=== PATIENT | female | born 1970 | race Caucasian/White ===

== ENCOUNTER 2025-04-25 20:56 | Inpatient (IN) | payer OTHER, SELFPAY ==
[2025-04-25 15:05] VITALS: BP 156/96
[2025-04-25 15:07] VITALS: BP 150/103
[2025-04-25 15:22] LABS: % Basophils 0.5 % (0-2); % Eosinophils 0.4 % (0-6); % Immature Granulocytes 0.4 % (0-0.5); % Lymphocytes 17.8 % (20.5-51.1); % Monocytes 6.7 % (1.7-9.3); % Neutrophils 74.2 % (42.2-75.2); Absolute Basophils 0.1 10^3/uL (0-0.2); Absolute Lymphocytes 1.7 10^3/uL (1.2-3.4); Absolute Monocytes 0.6 10^3/uL (0.1-0.6); Hematocrit 43.6 % (37.0-47.0); Hemoglobin 15.3 g/dL (12.0-16.0); Mean Corp Hgb Conc. 35.1 g/dL (33.0-37.0); Mean Corpuscular Hgb 30.4 pg (27.0-31.0); Mean Corpuscular Volume 86.5 fL (81.0-99.0); Mean Platelet Volume 9.1 fL (7.4-10.4); Nucleated Red Blood Cells % 0 %; Platelet Count 228 10^3/uL (130-400); Red Blood Cell Count 5.04 10^6/uL (4.20-5.40); Red Cell Dist. Width 12.8 % (11.5-14.5); White Blood Cell Count 9.4 10^3/uL (4.8-10.8)
[2025-04-25 15:40] LABS: INR 0.97; PT 13.2 Sec (11.4-14.6)
[2025-04-25 15:51] LABS: ALT (SGPT) 20 U/L (0-35); AST (SGOT) 29 U/L (14-36); Albumin 4.7 g/dl (3.5-5.0); Alkaline Phosphatase 76 U/L (38-126); Blood Urea Nitrogen 15 mg/dl (7-17); Calcium 9.5 mg/dl (8.4-10.2); Carbon Dioxide 25 mmol/L (22-30); Chloride 108 mmol/L (98-107); Glucose 105 mg/dl (70-99); Potassium 4.3 mmol/L (3.5-5.1); Sodium 141 mmol/L (135-145); Total Bilirubin 0.4 mg/dl (0.2-1.3); Total Protein 7.7 g/dl (6.3-8.2); eGFR > 60.00
[2025-04-25 15:59] LABS: Troponin I < 0.012 ng/ml
[2025-04-25] MEDS: SOLU-MEDROL PF 125 MG IV (17:56)
[2025-04-25] MEDS: DILAUDID 0.5 MG IV (19:18)
[2025-04-25] MEDS: ZOFRAN 4 MG IV (19:18)
--- NOTE | 2025-04-25 19:33 | ED.GENMED ---
History of Present Illness
General
Chief Complaint: Chest Pain
Time Seen by Provider: 04/25/25 17:18
History of Present Illness
History of Present Illness:
I reviewed records�the patient was seen here in the emergency department for chest pain in 2016 twice, 2017, and 2018.
CHIEF COMPLAINT(S)
Severe pain in the left shoulder and chest pain.
HISTORY OF PRESENT ILLNESS
The patient is a 54-year-old female who presents with a chief complaint of severe pain in the left shoulder and chest pain. The symptoms have been present for approximately one and a half weeks. The pain, originating in the left shoulder blade,
intensifies with movement and has been described by the patient as severe enough to prevent lying down or sitting comfortably. The patient expressed experiencing numbness and tingling extending down the left arm, describing it as a 'pain numbness'
that also tingles the fingers. The pain has been reported to go through the shoulder to the chest, causing significant distress and difficulty breathing. The patient reports a previous diagnosis involving her L3 and L4 vertebrae, which have caused
past episodes of extreme pain. The patient also expressed concern about a potential heart attack when the pain moved to her chest. Upon further questioning, the patient attributes her pain to nerve involvement, speculating a pinched nerve.
The physical examination revealed decreased sensation in the left forearm. The patient is unable to move the arm without exacerbation of pain, and certain movements provide temporary relief. She describes the pain as sharp and breath-taking. The
patient has avoided narcotics historically due to family issues with addiction.
PAST MEDICAL HISTORY
History of back issues involving L3 and L4 vertebrae with significant past episodes of pain.
ALLERGIES
Allergic reactions to multiple medications; severe rash in response to Tylenol.
REVIEW OF SYSTEMS
- Musculoskeletal: Severe pain in the left shoulder blade, intensifies with movement; numbness and tingling in the left arm; pain described as sharp and breath-taking.
- Neurological: Decreased sensation in the left forearm; numbness and tingling in the left arm and fingers.
- Respiratory: Pain causes significant difficulty in breathing.
PHYSICAL EXAM
- Musculoskeletal: Severe pain noted in left shoulder blade. Left paraspinal thoracic tenderness noted upon palpation.
- Neurological: Decreased sensation in left forearm.
- Respiratory: Lungs clear to auscultation. Pain non-reproducible upon chest wall palpation.
- Nursing notes reviewed and vital signs reviewed.
PROBLEM LIST
Acute:
- Severe left shoulder blade pain with radiation to the chest.
- Decreased sensation and tingling in the left arm.
PLAN
- Obtain a computed tomography scan of the chest to rule out serious conditions such as aortic dissection.
- Administer intravenous steroids to reduce inflammation.
- Avoid non-steroidal anti-inflammatory drugs and consider alternative medications due to allergy history.
- Monitor for any adverse effects or changes in patient status.
DIFFERENTIAL DIAGNOSIS
The Differential Diagnosis includes, in no particular order and is not limited to:
- Cervical radiculopathy
- Thoracic outlet syndrome
- Myocardial infarction
- Aortic dissection
- Tendinitis
- Brachial plexus injury
- Cervical spine issues
- Intercostal neuralgia
- Angina pectoris
- Anxiety-related chest pain
CARE-UPDATE
04/25/25 - 19:14
The patient is considering the use of a narcotic for pain management. After discussing with the patient and her boyfriend, a low dose of half a milligram of Dilaudid was suggested for pain relief. The patient expressed concerns about feeling
sedated, recalling a previous experience of falling asleep during a conversation after receiving pain medication. It was assured that the proposed dose is low and should not have a sedative effect. The decision was made to proceed with administering
half a milligram of Dilaudid.
CARE-UPDATE
04/25/25 - 19:[address] imaging - I see no evidence of thoracic aortic dissection however R basilar segmental PE suspected.
She was given Dilaudid earlier but pain persists although improved. Given the acute PE with ongoing pain will recommend admission to the hospital for heparin and pain control. I discussed case with Dr. Adebamiro.
EKG: Sinus 88, nonspecific ST abnormality
Past History
Past History
ED Past Medical History: None
ED Past Surgical History: Gynecological (Ectopic , salpingectomy)
Social History
Tobacco: Smoker
Alcohol: Occasional
Drug: None
Living: with family
Employment: Employed
Phy Exam
Physical Exam
Physical Exam:
See HPI
Scores
Heart Score for Chest Pain Patients
STEMI patient?: Not applicable
Course
Orders/Labs/Results
Orders:
Orders
04/25/25 15:00
EKG [Electrocardiogram (*1)] Urgent
Reason for Study: Chest Pain
EKG- Treatment ONCE
04/25/25 15:08
CR Chest - 2 Views Urgent
Comment:
Reason For Exam: chest pain
04/25/25 15:13
Complete Blood Count/With Diff Urgent
Comprehensive Metabolic Panel Urgent
Prothrombin Time Urgent
Troponin I Urgent
04/25/25 17:41
CT Chest Angio W/wo Iv Contras Urgent
Comment:
Reason For Exam: cp to back severe eval for dissection
MethylPREDNISolone PF [Solu-Medrol Pf] 125 mg IV NOW STA
04/25/25 19:14
HYDROmorphone [Dilaudid] 0.5 mg IV NOW STA
Ondansetron Injectable [Zofran] 4 mg IV NOW STA
04/25/25 19:50
Heparin 4,700 units IV NOW STA
Pharmacy Request to Place See Dose Instructions PO NOW STA
Discontinue all Active Warfarin orders?: Yes
04/25/25 19:51
PTT Urgent
Comment: Obtain baseline before beginning heparin infusion if not already collected
Nursing to Place Non Medication Order As Directed
Physician Order: PTT 6 hours after initial start of Heparin infusion
04/25/25 20:00
Heparin 93179 Units/250 ml 25,000 units in 250 ml IV PER PROTOCOL
Weight to be used for heparin protocol in kilograms (kg):: 58.2
Protocol:: DVT/PE
PTT Goal Range to be used:: PTT 73 to 111 seconds
Order type:: Initial
INITIAL Infusion Dose (UNITS/KG/hr) & then follow protocol:: 18 units/kg/hr
Infusion Dose in UNITS/hr & then follow protocol (UNITS/hr):: 1,000
INFUSION RATE in mL/hr & then follow protocol (mL/hr):: 10
For DVT/PE algorithm, re-bolus for low PTT?: Yes
PTT less than or equal to 64 seconds:: Re-bolus 80 units/kg (max 10,000units). Increase by 200 units/hr
(+ 2mL/hr)
PTT 64.1 to 72.9 seconds:: Re-bolus 40 units/kg (max 5,000 units). Increase by 100 units/hr
(+ 1mL/hr)
PTT 73 to 111 seconds:: Target Range. No change in rate.
PTT 111.1 to 130.9 seconds:: Decrease rate by 100 units/hr (- 1 mL/hr)
PTT 131 to 199.9 seconds:: HOLD for 1 hr. Then decrease by 200 units/hr (- 2mL/hr)
PTT greater than or equal to 200 seconds:: HOLD for 2 hrs & Notify Provider. Then decrease by 200 units/hr
(- 2mL/hr)
Lab follow-up:: Each change, PTT q6h until 2 consecutive are therapeutic. Then
PTT daily.
Pharmacy Request to Place See Dose Instructions IV DIRECTED
Abnormal Lab Results
04/25/25
15:13
Absolute Neuts (auto) 7.0 H 10^3/uL
(1.4-6.5)
Lymphocytes % 17.8 L %
(20.5-51.1)
Chloride 108 H mmol/L
(98-107)
Glucose 105 H mg/dl
(70-99)
04/25/25 15:13
04/25/25 15:13
Vital Signs
Initial and Last Documented VS:
Initial Vital Signs
Temp Pulse Resp BP Pulse Ox
37.1 C 82 17 156/96 100
04/25/25 15:05 04/25/25 15:05 04/25/25 15:05 04/25/25 15:05 04/25/25 15:05
Last Documented Vital Signs
Temp Pulse Resp BP Pulse Ox
37.1 C 82 17 150/103 100
04/25/25 15:05 04/25/25 15:05 04/25/25 15:05 04/25/25 15:07 04/25/25 15:05
*Critical Care Note
Total Time (30-74mins, 75-104mins- exclusive of procedures): Not Applicable
ED Attending Note
-
Portions of this chart may have been created with voice recognition software.� Occasional wrong word or��sound alike� substitutions may have occurred due to the inherent limitations of voice recognition software.
Discharge Plan
Departure
Prescriptions:
No Action
No Current Medications
0
Referrals:
Sharon Barrett DO [Family Provider, Family Practice]
Interventions
Interventions:
*Risk Screen - Suicide Last Done: 04/25/25 15:07
*General Assessment Last Done: 04/25/25 15:07
*Neglect/Abuse Screening Last Done: 04/25/25 15:07
*ED COVID-19 Vaccine History Last Done: 04/25/25 15:07
ED- Cardiac Assessment Last Done: 04/25/25 18:22
Discharge Date and Time
Print Language: NICARAGUAN
[2025-04-25 19:48] VITALS: BMI 21.4
[2025-04-25 20:16] LABS: APTT 27.4 Sec (23.4-35.0)
[2025-04-25 20:19] VITALS: BP 144/97
[2025-04-25] MEDS: HEPARIN 4700 UNITS IV (20:20)
[2025-04-25] MEDS: HEPARIN 25000 UNITS/250 ML IV (20:21)
--- NOTE | 2025-04-25 20:26 | HPS.HSE ---
Family Physician
-
Family Physician: Sharon Barrett
Chief Complaint
-
Chest pain
History of Present Illness
This is a 54-year-old female with past medical history significant for tobacco abuse and prior ectopic pregnancies presenting to the emergency department with acute episode of sharp chest pain in the setting of approximately 1 week of back pain.
Patient reports that about 1 week ago she was doing a walk on a deck lifting heavy objects and developed severe back pain and left upper back. She does not she may have some pinkness as well she is having some [id number] sensation in her
arms. This was tolerable for several days. However today whenever she sat up or stood up she had severe sharp chest pain that was radiating to the back. She denied feeling dizzy or lightheaded. She denied any palpitation. She denied nausea
vomiting or diaphoresis. She has no prior history of CAD. She does have positive family history.
Patient denies any recent travels. She denies any sick contacts. No history of recent flulike symptoms. She denies any calf tenderness or swelling.
In the emergency department she was afebrile. Blood pressure was 150/100 with a pulse of 87 and she was satting 100% on room air. ECG showed sinus rhythm at a rate of [address] or T wave changes. Chest x-ray was clear. Troponin was
negative. She had a CT with angio which showed small pulmonary embolus in the lateral right basilar lower lobe segmental pulmonary artery. No CT evidence for right heart strain. At the read was stated suspicious for this embolus rather than
definitive.
Medical History
Past Medical History
Past Medical History: Reports Other
Additional Past Medical History:
Ectopic
Migraine
Past Surgical History: Reports Orthopedic (Bilateral ACL knee surgeries) and Other (Bilateral salpingectomy, removal of uterus adhesions.)
Additional Past Surgical History:
Left breast biopsy
Thyroid biopsy
Social History
Tobacco: Smoker
Alcohol: None
Drug: None
Personal:
Living: With Family
Employment: Employed
Family History
Family History: Not pertinent
Allergies / Home Medications
Allergies reflects when Allergies were last updated in [employer].
Home Medications with original date entered in [employer]
Allergy/Medication List:
Allergies
Allergy/AdvReac Type Severity Reaction Status Date / Time
antihistamines Allergy Rash Uncoded 04/25/25 15:05
POISON BEN Allergy SPREADS Uncoded 04/25/25 15:05
ALL OVER
MY BODY
Home Medications
No Meds [No Current Medications] 02/17/18
Review of Systems
-
History Source: Patient
Constitutional: Reports No Symptoms
EENT: Reports No Symptoms
Respiratory: Reports No Symptoms
Cardiac: Reports Chest Pain
Abdomen/GI: Reports No Symptoms
: Reports No Symptoms
Musculoskeletal: Reports No Symptoms
Skin: Reports No Symptoms
Neurological: Reports No Symptoms
Endocrine: Reports No Symptoms
Hematologic/Lymphatic: Reports No Symptoms
Psych: Reports No Symptoms
Physical Exam
Vital Signs
Vital Signs
Temp Pulse Resp BP Pulse Ox
98.8 F 82 17 150/103 100
04/25/25 15:05 04/25/25 15:05 04/25/25 15:05 04/25/25 15:07 04/25/25 15:05
Physical Exam
General: Well Developed, Well Nourished and No Apparent Distress
HEENT: NormoCephalic, Moist mucous membranes and Atraumatic
Respiratory: Clear
Cardiac: S1/S2 and Regular Rhythm; No Murmur or Rub
GI: Soft, Non Tender, Non Distended and Normal Bowel Sounds; No Organomegaly
Rectal: Deferred by Provider
Musculoskeletal: No Clubbing, No Cyanosis and No Edema
Skin: No Rash
Neuro: Nonfocal/grossly intact
Laboratory Results
-
04/25/25 15:13
04/25/25 15:13
Laboratory Results
PT 13.2 Sec (11.4-14.6) 04/25/25 15:13
INR 0.97 04/25/25 15:13
Total Bilirubin 0.4 mg/dl (0.2-1.3) 04/25/25 15:13
AST 29 U/L (14-36) 04/25/25 15:13
ALT 20 U/L (0-35) 04/25/25 15:13
Alkaline Phosphatase 76 U/L (38-126) 04/25/25 15:13
Troponin I < 0.012 ng/ml 04/25/25 15:13
Data Reviewed
-
Diagnostic Radiology: Image Personally Visualized and interpreted and Report Reviewed by me
CT Scan: Report Reviewed by me
Medical Tests (Nuc Med, Echo, EKG etc): Image Personally Visualized and interpreted
Lab Data: Labs Reviewed by me
Old Records: Reviewed
Impression/Plan
-
IMPRESSION:
54-year-old female with no significant past medical history presents to the emergency department with chest pain and found to have small right distal PE (suspected). Unprovoked based on history. Hemodynamically stable. Not hypoxic. No ischemia
on ECG, no strain on CT PE. Question whether this is actually a PE given lack of risk factors. Patient has no history of malignancies. She is a smoker, no nodule seen on the CT PE or chest x-ray. She has no family history of hypercoagulability.
Last colonoscopy was over 10 years ago. She is being admitted for pain control.
PLAN:
PE -remains suspected PE at this time based on the radiologist report. Will have to follow-up any changes in these reports over the next 1 4 hours.
-For now admitted to telemetry
-Continue heparin drip
-Check D-dimer
-Echocardiogram
-Will likely transition to oral anticoagulation tomorrow if reports remain consistent with PE
-Likely will need to follow-up CT scan
-Outpatient hypercoagulable workup
-Pulmonary consultation
-Pain control
DVT prophylaxis -on heparin treatment
CODE STATUS�full code
[2025-04-25 21:15] VITALS: BP 162/91; BMI 19.7
--- NOTE | 2025-04-25 21:20 | PTCARENOTE ---
Pt arrived to unit from ED via stretcher. Ambulated from stretcher to bed. Heparin gtt at 10 ml/hr maintained. Pt A&Ox3. Complaining of 8/10 pain in chest and shoulder. 5 mg PRN oxycodone given. Oriented to unit. Call light within reach. Plan of
care ongoing.
[2025-04-25] MEDS: ROXICODONE 5 MG PO (21:49)
[2025-04-25 23:22] VITALS: BP 135/84
[2025-04-26] VITALS (7 sets, daily range): BP systolic 123–152; BP diastolic 78–93; BMI 19.7
[2025-04-26 02:34] LABS: APTT 113.4 Sec (23.4-35.0)
[2025-04-26] MEDS: DILAUDID 0.5 MG IV (05:50)
--- NOTE | 2025-04-26 08:13 | W.PN.HOSP.TC ---
Addendum entered and electronically signed by Luisana Garcia MD 04/26/25 11:55:
d-dimer negative, but with CT finding of suspected PE in association with chest pain and patient feeling like she couldn't take a deep breath, will continue treatment. I will discuss with Pulmonary once evaluated today.
Original Note:
Today's Communication/Plan
-
see plan
Assessment / Plan
Assessment / Plan
54-year-old woman with hx tobacco abuse presents to ER with chest pain and found to have small right distal PE (suspected). Unprovoked based on history.
She is a smoker, no nodule seen on the CT PE or chest x-ray. She has no family history of hypercoagulability. Last colonoscopy was over 10 years ago. She is being admitted for pain control.
CTA
IMPRESSION:
1. No thoracic aortic aneurysm or dissection.
2. Suspect pulmonary embolism within lateral right basilar lower lobe segmental pulmonary artery. No CT evidence for right heart strain.
PLAN:
PE
-admitted to telemetry
-Continue heparin drip
-Check D-dimer
-Echocardiogram
-LE US
-Will likely transition to oral anticoagulation this evening
-Outpatient hypercoagulable workup
-Pulmonary consultation
-Pain control
-*patient reports allergies to meds; we discussed observation overnight after initiation of Eliquis
MSK pain
-suspect MSK pain also contributing as patient recently working on a deck with heavy lifting and states she was pushing herself. The fact that pain moves throughout back to chest. She has pain with movement of neck along paraspinal neck muscles
-will trial heat pack on left side
DVT prophylaxis -on heparin treatment
CODE STATUS�full code
Anticipated Discharge: Within 24 hours
Subjective/Interval History
-
Date of Service: April 26, 2025
currently has pain up and down back/ bilateral neck and across chest.
no pain on right side
states feels difficult to take a deep breath
Objective Data
-
Labs:
Laboratory Results
04/25/25 04/26/25 04/26/25
19:59 02:13 06:00
WBC Pending
Hgb Pending
Hct Pending
Plt Count Pending
APTT 27.4 113.4 H
04/26/25
08:45
WBC
Hgb
Hct
Plt Count
APTT Pending
Vital Signs:
Vital Signs
Temp Pulse Resp BP Pulse Ox
98.0 F 72 16 138/92 100
04/26/25 07:41 04/26/25 07:41 04/26/25 07:41 04/26/25 07:41 04/26/25 07:41
I&O
04/25/25 04/26/25 04/27/25
06:59 06:59 06:59
Intake Total 240 / 240
Balance 240 / 240
Review of Systems
-
History Source: Patient
All other systems: Reviewed and negative
Physical Exam
-
General: No Apparent Distress and Conversant
HEENT: PERRLA
Respiratory: Clear to Auscultation; Negative Wheezes
Cardiac: Regular Rhythm and S1/S2
GI: Soft and Nontender
Musculoskeletal: No Edema
Skin: Warm and Dry; Negative Rash
Neuro: AO x 3
Psych: Calm
Data Reviewed
-
Diagnostic Radiology: Report Reviewed by me
Labs: Labs Reviewed by me
[2025-04-26 08:44] LABS: Hematocrit 44.4 % (37.0-47.0); Hemoglobin 15.2 g/dL (12.0-16.0); Mean Corp Hgb Conc. 34.2 g/dL (33.0-37.0); Mean Corpuscular Hgb 30.2 pg (27.0-31.0); Mean Corpuscular Volume 88.1 fL (81.0-99.0); Mean Platelet Volume 9.7 fL (7.4-10.4); Platelet Count 240 10^3/uL (130-400); Red Blood Cell Count 5.04 10^6/uL (4.20-5.40); Red Cell Dist. Width 12.5 % (11.5-14.5); White Blood Cell Count 12.1 10^3/uL (4.8-10.8)
[2025-04-26 08:56] LABS: APTT 73.6 Sec (23.4-35.0)
[2025-04-26] MEDS: MIRALAX 17 GRAMS PO (08:58)
[2025-04-26 09:18] LABS: NT-proBNP 425 pg/ml; Troponin I < 0.012 ng/ml
[2025-04-26 09:22] LABS: D-Dimer < 0.27 ug/mlFEU (0.00-0.50)
[2025-04-26] MEDS: ROXICODONE 5 MG PO (09:36)
[2025-04-26 10:15] LABS: Glycohemoglobin (HgbA1c) 5.6 % (4.0-5.6)
--- NOTE | 2025-04-26 11:13 | CM ---
Patient seen at bedside
CM role explained
IA completed
CM consult completed for Eliquis cost
CM called [facility] pharmacy & spoke with pharmacist Candice
Eliquis 10mg po BID x 1 wk - $156.83
Eliquis 5mg po BID x 3 mos - $335.36 per month
CM will give coupons to patient
Dx: Pulmonary embolism
Lives in a 2 story home with , flight steps to bed/bath
PLOF: independent
Denies DME
Denies VN/Rehab
PCP: Sharon Barrett
Pharmacy: [address], [place]
PLAN: Home, no needs anticipated
[2025-04-26] MEDS: HYDROCORTISONE 1% CREAM 1 APPLIC TOPICAL ×2 (13:09→20:32)
--- NOTE | 2025-04-26 13:58 | CON.PUL ---
Consultation
Consultation Request
Date/Time Consultation Requested: 04/26/25
Date/Time Consultation Performed: 04/26/25
Performing Provider: Nasima
Reason for Consultation: SOB
Medical History
-
History of Present Illness:
Patient is a 54-year-old female with past medical history significant for tobacco abuse and prior ectopic pregnancies presenting to the emergency department with acute episode of sharp chest pain in the setting of approximately 1 week of back pain.
Location is noted to be back pain and left upper back. This seems triggered by sitting position and has trigger points, but she otherwise notes that the pain at times may be intermittent wtih no inciting factors.
In the emergency department she was afebrile. Blood pressure was 150/100 with a pulse of 87 and she was satting 100% on room air. ECG showed sinus rhythm at a rate of [address] or T wave changes. Chest x-ray was clear. Troponin was
negative. She had a CT with angio which showed small pulmonary embolus in the lateral right basilar lower lobe segmental pulmonary artery. No CT evidence for right heart strain. At the read was stated suspicious for this embolus rather than
definitive. She is placed on IV heparin.
Past Medical History
Past Medical History: Other (see list below)
Social History
Tobacco: Smoker
Alcohol: None
Drug: None
Family History
Family History: Reviewed & Not Pertinent
Allergies / Home Medications
Allergies
Allergy/AdvReac Type Severity Reaction Status Date / Time
antihistamines Allergy Rash Uncoded 04/25/25 15:05
POISON BEN Allergy SPREADS Uncoded 04/25/25 15:05
ALL OVER
MY BODY
Home Medications
�Medication �Instructions �Recorded �Confirmed �Last Taken �Type
No Meds [No Current Medications] 02/17/18 02/17/18 Unknown History
Review of Systems
-
History Source: Patient
All other systems: Negative unless noted
Vitals / Labs / Diagnostic Testing
Vital Signs
Temp Pulse Resp BP Pulse Ox
98.9 F 76 16 152/88 98
04/26/25 11:28 04/26/25 11:28 04/26/25 11:28 04/26/25 11:28 04/26/25 13:00
Lab Data
04/26/25 08:36
04/25/25 15:13
Laboratory Results
04/25/25 04/25/25 04/26/25
15:13 19:59 02:13
PT 13.2
INR 0.97
APTT 27.4 113.4 H
04/26/25
08:36
PT
INR
APTT 73.6 H
Diagnostic Testing:
Physical Exam
-
HEENT: Normocephalic, Anicteric and Moist Mucous Membranes
Cardiovascular: S1/S2 and Regular Rhythm
Respiratory: Clear and Non-Labored Respirations
GI: Soft, Non Distended and Non Tender
Neurology: Awake, Alert, Oriented and No Motor Deficits
Skin: Warm, Dry and Good Color
General: Comfortable and Other (NAD)
Assessment
-
Patient is a 54-year-old female with past medical history significant for tobacco abuse and prior ectopic pregnancies presenting to the emergency department with acute episode of sharp chest pain in the setting of approximately 1 week of back pain.
Location is noted to be back pain and left upper back. This seems triggered by sitting position and has trigger points, but she otherwise notes that the pain at times may be intermittent with no inciting factors. In the emergency department she was
afebrile. Blood pressure was 150/100 with a pulse of 87 and she was satting 100% on room air. ECG showed sinus rhythm at a rate of [address] or T wave changes. Chest x-ray was clear. Troponin was negative. She had a CT with angio
which showed 'suspected' small pulmonary embolus in the lateral right basilar lower lobe segmental pulmonary artery. She is placed on IV heparin. We are consulted for evaluation.
Acute onset atypical chest pain/back pain
Suspected RLL PE, not confirmed
Current smoker, 11/19-11/17 PPD
Mild leukocytosis
Conditions present [employer]
migraines
thyroid biopsy
left breast biposy
bilateral acl knee surgeries
uterus adhesions removed
DM Adm Chest pain 02/2018
Plan
No oxygen was needed on admission, currently saturating >90% on RA
Prior history of lung disease is not noted but she is a current smoker
We discussed smoking cessation
Has never had PFTs
Suspect patient has PE but this does not explain her chest pain, I think the two are unrelated
CT obtained indicating possible PE, but not confirmed
She is placed on IV heparin, she does not wish to continue OAC if this is not a confirmed finding
D-dimer negative
Can obtain VQ scan, if low probability i think we can stop treatment
Only risk factor for VTE is smoking
Duplex negative as well
ECHO results reviewed--normal results
Prior ECHO results are reviewed indicating normal results
She had chest pain around 2017 and had cardiac w/u that was negative
She notes her pain was not relieved by ASA, Dilaudid
She wanted to pursue cath but did not follow up and her chest pain resolved
This does not seem cardiac in nature
Smoking history noted
Smoking cessation encouraged and would reduce her cardiac/VTE risk
Will need outpatient pulmonary evaluation in our office for PFTs and 6MWT
Reviewed with patient
MSK reasons may need to be pursued for back pain, consideration for OP Rheum eval as well
If all testing negative, ok with d/c planning and OP FU
She was in agreement with this plan as well
We will follow
Diagnostic Data
Chest X-Ray:
CT Scan: CHEST 04/25/25- 1. No thoracic aortic aneurysm or dissection.
2. Suspect pulmonary embolism within lateral right basilar lower lobe segmental pulmonary artery. No CT evidence for right heart strain.
4/4/18- No CT evidence of central pulmonary embolic disease.
Echo: 04/26/25-Normal biventricular size and systolic function without regional wall motion abnormality. LVEF 60-65%. No significant valvular disease. No significant change compared to prior echocardiogram in 2018.
2018-Normal echocardiogram. No prior study available for comparison.
PFT's:
Reports and relevant images were personally reviewed.
Total time spent on this consultation __68__ minutes which includes review of history, physical exam, medications, laboratory data, personal review of imaging, extensive review of outpatient records, discussion with care team and respiratory therapy.
[2025-04-26 15:20] LABS: APTT 67.2 Sec (23.4-35.0)
[2025-04-26] MEDS: HEPARIN 2300 UNITS IV (15:41)
[2025-04-26] MEDS: TYLENOL 650 MG PO (15:49)
--- NOTE | 2025-04-26 17:02 | W.PN.UPDATE ---
Addendum entered and electronically signed by Luisana Garcia MD 04/26/25 17:12:
allergy to antihistamines written in chart - will hold off on benadryl and claritin
Original Note:
Update Note
Progress Note Update
patient with rash which she believes is secondary to heparin. she is speaking in full sentences, moving around bed. erythematous lacy rash on chest.
I will stop IV heparin gtt now and transition to Eliquis. Discussed with Pulmonary, V/Q scan ordered for tomorrow, can then discuss further AC course.
I will give IV Benadryl 50mg, pepcid, start claritin tomorrow; continue topical hydrocortisone
patient is OK with plan above
[2025-04-26] MEDS: NSS (PRESERVATIVE FREE) 8 ML IV (17:22)
[2025-04-26] MEDS: NSS 500 IV (17:22)
[2025-04-26] MEDS: PEPCID 20 MG IV (17:23)
[2025-04-26] MEDS: ELIQUIS 10 MG PO (17:25)
[2025-04-27 03:43] VITALS: BP 144/84
[2025-04-27 07:00] VITALS: BP 128/81
[2025-04-27 07:22] LABS: Hematocrit 43.7 % (37.0-47.0); Mean Corp Hgb Conc. 34.3 g/dL (33.0-37.0); Mean Corpuscular Hgb 30.2 pg (27.0-31.0); Mean Corpuscular Volume 87.9 fL (81.0-99.0); Platelet Count 237 10^3/uL (130-400); Red Blood Cell Count 4.97 10^6/uL (4.20-5.40); Red Cell Dist. Width 12.8 % (11.5-14.5); White Blood Cell Count 11.9 10^3/uL (4.8-10.8)
[2025-04-27] MEDS: ROXICODONE 5 MG PO ×2 (07:36→13:43)
[2025-04-27] MEDS: MIRALAX 17 GRAMS PO (07:36)
[2025-04-27] MEDS: ELIQUIS 10 MG PO (07:36)
[2025-04-27] MEDS: HYDROCORTISONE 1% CREAM 1 APPLIC TOPICAL (07:37)
[2025-04-27 09:13] LABS: Blood Urea Nitrogen 19 mg/dl (7-17); Calcium 9.6 mg/dl (8.4-10.2); Carbon Dioxide 27 mmol/L (22-30); Chloride 107 mmol/L (98-107); Estimated Creatinine Clearance 71 ml/min; Glucose 121 mg/dl (70-99); Potassium 4.4 mmol/L (3.5-5.1); Sodium 144 mmol/L (135-145); eGFR > 60.00
--- NOTE | 2025-04-27 09:48 | W.PN.HOSP.TC ---
Today's Communication/Plan
-
expect DC today post VQ scan
Assessment / Plan
Assessment / Plan
54-year-old woman with hx tobacco abuse presents to ER with chest pain and found to have small right distal PE (suspected). Unprovoked based on history.
She is a smoker, no nodule seen on the CT PE or chest x-ray. She has no family history of hypercoagulability. Last colonoscopy was over 10 years ago. She is being admitted for pain control.
CTA
IMPRESSION:
1. No thoracic aortic aneurysm or dissection.
2. Suspect pulmonary embolism within lateral right basilar lower lobe segmental pulmonary artery. No CT evidence for right heart strain.
TTE 04/26/25
CONCLUSIONS
Normal biventricular size and systolic function without regional wall motion
abnormality. LVEF 60-65%.
No significant valvular disease.
PLAN:
PE suspected on CTA (some motion artifact)
-admitted to telemetry
-D-dimer negative, TTE WNL (above)
-LE US without thrombus
-appreciate Pulmonary - V/Q ordered for this AM
-continue Eliquis for now. If VQ low probability patient will not want to take Eliquis - risks and benefits discussed with patient
MSK pain
-suspect MSK pain also contributing as patient recently working on a deck with heavy lifting and states she was pushing herself. Pain is reproducible. She has pain with movement of neck along paraspinal neck muscles
-will trial heat pack on left side
DVT prophylaxis - Eliquis
CODE STATUS�full code
Anticipated Discharge: Within 24 hours
Subjective/Interval History
-
Date of Service: April 27, 2025
rash now resolved
she feels irritation in throat from not smoking
reports being under a lot of stress recently
Objective Data
-
Labs:
Laboratory Results
04/26/25 04/27/25 04/27/25
21:45 06:32 08:34
WBC 11.9 H
Hgb 15.0
Hct 43.7
Plt Count 237
APTT Cancelled
Sodium Cancelled 144
Potassium Cancelled 4.4
Chloride Cancelled 107
Carbon Dioxide Cancelled 27
BUN Cancelled 19 H
Creatinine Cancelled 0.8
Glucose Cancelled 121 H
Calcium Cancelled 9.6
Vital Signs:
Vital Signs
Temp Pulse Resp BP Pulse Ox
98.2 F 60 19 128/81 98
04/27/25 07:00 04/27/25 07:00 04/27/25 07:00 04/27/25 07:00 04/27/25 07:00
I&O
04/26/25 04/27/25 04/28/25
06:59 06:59 06:59
Intake Total 240 / 240 960 / 960
Balance 240 / 240 960 / 960
Review of Systems
-
History Source: Patient
All other systems: Reviewed and negative
Physical Exam
-
General: No Apparent Distress and Conversant
HEENT: PERRLA
Respiratory: Clear to Auscultation; Negative Wheezes
Cardiac: Regular Rhythm and S1/S2
GI: Soft and Nontender
Musculoskeletal: No Edema
Skin: Warm and Dry; Negative Rash
Neuro: AO x 3
Psych: Anxious
Data Reviewed
-
Diagnostic Radiology: Report Reviewed by me
Labs: Labs Reviewed by me
[2025-04-27 11:00] VITALS: BP 145/85
--- NOTE | 2025-04-27 11:18 | W.PN.PUL3 ---
Today's Communication / Plan
-
VQ scan with low probability, given these findings and lack of other supportive evidence, I am in agreement to stop OAC
Patient also agrees
We will arrange OP FU w/ PFTs
Back pain has improved
Discharge planning otherwise per team
Assessment
-
Patient is a 54-year-old female with past medical history significant for tobacco abuse and prior ectopic pregnancies presenting to the emergency department with acute episode of sharp chest pain in the setting of approximately 1 week of back pain.
Location is noted to be back pain and left upper back. This seems triggered by sitting position and has trigger points, but she otherwise notes that the pain at times may be intermittent with no inciting factors. In the emergency department she was
afebrile. Blood pressure was 150/100 with a pulse of 87 and she was satting 100% on room air. ECG showed sinus rhythm at a rate of [address] or T wave changes. Chest x-ray was clear. Troponin was negative. She had a CT with angio
which showed 'suspected' small pulmonary embolus in the lateral right basilar lower lobe segmental pulmonary artery. She is placed on IV heparin. We are consulted for evaluation.
Acute onset atypical chest pain/back pain
Suspected RLL PE, not confirmed
Current smoker, 11/19-11/17 PPD
Mild leukocytosis
Conditions present [employer]LE T[employer]ER
migraines
thyroid biopsy
left breast biposy
bilateral acl knee surgeries
uterus adhesions removed
DM Adm Chest pain 02/2018
Plan
No oxygen was needed on admission, currently saturating >90% on RA
Prior history of lung disease is not noted but she is a current smoker
We discussed smoking cessation
Has never had PFTs
Suspect patient has PE but this does not explain her chest pain, I think the two are unrelated
CT obtained indicating possible PE, but not confirmed
She is placed on IV heparin, she does not wish to continue OAC if this is not a confirmed finding
Only risk factor for VTE is smoking
Duplex negative as well
D-dimer negative
Can obtain VQ scan, if low probability i think we can stop treatment--she is in agreement
VQ negative, OAC stopped
ECHO results reviewed--normal results
Prior ECHO results are reviewed indicating normal results
She had chest pain around 2018 and had cardiac w/u that was negative
She notes her pain was not relieved by ASA, Dilaudid
She wanted to pursue cath but did not follow up and her chest pain resolved
This does not seem cardiac in nature
Smoking history noted
Smoking cessation encouraged and would reduce her cardiac/VTE risk
Will need outpatient pulmonary evaluation in our office for PFTs and 6MWT
Reviewed with patient
MSK reasons may need to be pursued for back pain, consideration for OP Rheum eval as well
D/c planning per team
Diagnostic Data
Chest X-Ray:
CT Scan: CHEST 04/25/25- 1. No thoracic aortic aneurysm or dissection.
2. Suspect pulmonary embolism within lateral right basilar lower lobe segmental pulmonary artery. No CT evidence for right heart strain.
02/17/18- No CT evidence of central pulmonary embolic disease.
Echo: 04/26/25-Normal biventricular size and systolic function without regional wall motion abnormality. LVEF 60-65%. No significant valvular disease. No significant change compared to prior echocardiogram in 2018.
2018-Normal echocardiogram. No prior study available for comparison.
PFT's:
Reports and relevant images were personally reviewed.
Total time spent on this consultation __45__ minutes which includes review of history, physical exam, medications, laboratory data, personal review of imaging, extensive review of outpatient records, discussion with care team and respiratory therapy.
Subjective Data
-
Date of Service:
Date of Service: April 27, 2025
Chief Complaint: Pulmonary Follow Up
Subjective:
No new complaints, stable on RA
Back pain improving, she admits she has been under a lot of stress lately
Objective Data
Data Reviewed
Vital Signs / I&O / Oxygen:
Vital Signs
Temp Pulse Resp BP Pulse Ox
98.0 F 66 19 145/85 98
04/27/25 11:00 04/27/25 11:00 04/27/25 11:00 04/27/25 11:00 04/27/25 11:00
Intake and Output
04/26/25 04/27/25 04/28/25
06:59 06:59 06:59
Intake Total 240 / 240 960 / 960
Balance 240 / 240 960 / 960
SaO2 98
Physical Exam
General: Comfortable and Other (NAD)
HEENT: Normocephalic, Anicteric and Moist Mucous Membranes
Cardiovascular: S1-S2 and Regular Rhythm
Respiratory: Clear and Non-Labored Respirations
GI: Soft, Non Distended and Non Tender
Neurology: Awake, Alert, Oriented and No Motor Deficits
Skin: Warm, Dry and Good Color
Labs/Micro/Reports
Lab Data
04/27/25 06:32
04/27/25 08:34
Laboratory Results
04/26/25 04/26/25
15:00 21:45
APTT 67.2 H Cancelled
--- NOTE | 2025-04-27 11:36 | CM ---
Addendum entered by Marcela Sanchez 04/27/25 15:46:
friend to transport
Original Note:
Patient chart reviewed - unavailable at VQ Scan
expect DC today post VQ scan
PLAN: Home, no needs
--- NOTE | 2025-04-27 12:34 | W.DS.TRANS ---
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
-
Discharge Instructions:
Discharge Diagnosis/Procedures concern for pulmonary embolism with follow up
studies showing 'very low' probability
Diet Regular
Activity As tolerated
Driving Restrictions As prior to admission
Bathing Restrictions None
Instructions:
Stand-Alone Forms:
Changes to Home Medications: Yes
Discharge Medications:
DC Medications w/original date entered in [email or web address]
No Meds [No Current Medications] 02/17/18
Home Medication Changes
Pending Results: No
--- NOTE | 2025-04-27 12:59 | W.DCSUMMARY ---
Discharge Summary
Discharge Data
Date of Admission: 04/25/25
Date of Discharge: 04/27/25
-
Pending Results: No
Hospital Course
Discharging Physician : Dr. Luisana Garcia
Disposition : Home
Primary care physician : Dr. Sharon Barrett
Principal Discharge diagnosis : MSK pain; initial concern for PE
Hospital Course :
Ms. Carmen Kumar is a 54 yo woman with hx tobacco abuse presents to ER with left-sided back and chest pain. Triage vitals stable, labs without leukocytosis, normal creatinine. CTA ordered with suspected PE right lower lobe segmental artery
(some motion artifact). She was started on a IV heparin gtt and admitted to medicine with Pulmonary consulting. D-dimer obtained and was negative. TTE WNL, LE US without clot. Decision made to pursue VQ study which showed 'very low probability'
PE. Joint decision made with patient to stop anticoagulation. 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 She is advised to continue heat packs, rest and follow
up with outpatient providers.
Time spent on discharge was 31 minutes.
Important imaging findings :
CTA 04/25/25
IMPRESSION:
1. No thoracic aortic aneurysm or dissection.
2. Suspect pulmonary embolism within lateral right basilar lower lobe segmental pulmonary artery. No CT evidence for right heart strain.
TTE 04/26/25
CONCLUSIONS
Normal biventricular size and systolic function without regional wall motion
abnormality. LVEF 60-65%.
No significant valvular disease.
LE US 04/26/25
IMPRESSION:
No evidence of DVT from the common femoral through the upper calf veins on either side.
VQ Scan 04/27/25
IMPRESSION: Examination is normal, with very low probability for pulmonary embolism.
Procedure findings :
Discharge Plan
-
Patient Disposition: Home (Routine Discharge)
Discharge Diagnosis/Procedures: concern for pulmonary embolism with follow up studies showing 'very low' probability
Diet: Regular
Activity: As tolerated
Driving Restrictions: As prior to admission
Bathing Restrictions: None
Referrals:
Ursula Del Real DO [Active, Pulmonary Medicine] - in two to four weeks
Referral Note: PFT
Sharon Barrett DO [Family Provider, Family Practice] - in less than 1 week
Prescriptions:
No Action
No Current Medications
0
Discharge Date and Time
Print Language: SYRIAC
[2025-04-27 15:00] VITALS: BP 136/93
--- NOTE | 2025-04-27 15:24 | W.DS.TRANS ---
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
-
Discharge Instructions:
Discharge Diagnosis/Procedures concern for pulmonary embolism with follow up
studies showing 'very low' probability
Diet Regular
Activity As tolerated
Driving Restrictions As prior to admission
Bathing Restrictions None
Instructions:
Stand-Alone Forms:
Changes to Home Medications: No
Discharge Medications:
DC Medications w/original date entered in 1,2,3 [employer]
No Meds [No Current Medications] 02/17/18
Home Medication Changes
Pending Results: No
== END 2025-04-27 15:54 | disposition home or self-care (01) | DRG 176 ==
LOC: 3 WEST ACU 20:56
PROVIDERS: Emergency Medicine; ADMITTING PHYSICIAN Internal Medicine; ATTENDING PHYSICIAN Student in an Organized Health Care Education/Training Program; CONSULT PHYSICIAN Internal Medicine; EMERGENCY PHYSICIAN Emergency Medicine; FAMILY PHYSICIAN Family Medicine
DX: I26.99 Other pulmonary embolism without acute cor pulmonale (principal); M25.512 Pain in left shoulder; G56.92 Unspecified mononeuropathy of left upper limb; F17.210 Nicotine dependence, cigarettes, uncomplicated; M54.2 Cervicalgia; M54.9 Dorsalgia, unspecified; L27.1 Localized skin eruption due to drugs and medicaments taken internally; T45.515A Adverse effect of anticoagulants, initial encounter; Y92.239 Unspecified place in hospital as the place of occurrence of the external cause; D72.829 Elevated white blood cell count, unspecified; X50.0XXA Overexertion from strenuous movement or load, initial encounter; Y93.H9 Activity, other involving exterior property and land maintenance, building and construction; Y92.007 Garden or yard of unspecified non-institutional (private) residence as the place of occurrence of the external cause; Z88.6 Allergy status to analgesic agent; Z88.8 Allergy status to other drugs, medicaments and biological substances
CPT/HCPCS: 71046; 71275; 78582; 80048; 80053; 83036; 83880; 84484; 85025; 85027; 85379; 85610; 85730; 93005; 93306; 93970; 96374; 96375; 99285; 99406; A9540; A9567; Q9967